=== PATIENT | female | born 1995 | race Caucasian/White ===

== ENCOUNTER → 2020-06-07 08:41 | Outpatient (CLI) | payer OTHER, SELFPAY ==
--- NOTE | ~2020-06-07 | US_ITS ---
EXAMINATION: US thyroid DATE: 06/07/2020 09:17 INDICATION: Nontoxic goiter TECHNIQUE: Multiple ultrasound images of the thyroid were obtained. COMPARISON: None. FINDINGS: The right thyroid lobe measures 4.4 x 1.0 x 1.3 cm. The left thyroid lobe measures 3.4 x 0.8 x 1.2 c m. The thyroid isthmus measures 2 mm in thickness. No discrete nodules identified. There is normal ec hotexture, echogenicity and vascular flow throughout the thyroid gland. IMPRESSION: 1. Normal thyroid ultrasound. Reviewed, dictated and finalized at location B. 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
== END ==
PROVIDERS: PCP Family Medicine; Visit Provider Internal Medicine Endocrinology, Diabetes & Metabolism
DX: E04.9 Nontoxic goiter, unspecified (principal)
CPT/HCPCS: 76536

== ENCOUNTER 2024-03-17 12:55 | Outpatient (CLI) | payer OTHER, SELFPAY ==
--- NOTE | ~2024-03-17 | US_ITS ---
COMPLETE AND LIMITED MATERNAL History: . ANATOMY . Comparison: None Findings: Number of fetuses: 1. BIOMETRY: BPD: 4.7 cm (20 weeks 2 days) HC: 17.9 cm (20 weeks 3 days) AC: 15.4 cm (20 weeks 4 days) FL: 3.1 cm (19 weeks 4 days) CI: 76.3 FL/BPD: 64.9. HC/AC: 1.16. FL/AC: 19.94. Parametric ratios: Today's average US gestational age: 20 weeks 2 days Today's EDC: August 02, 2024 Estimated weight: 333.8 gm. EFW/GP: 61.3%. SCREENING OF ANATOMY: ( Y =seen and unremarkable.) Cerebellum: Y ( 20 mm) Lateral ventricles: Y ( 7.6 mm) Cisterna magna: Y ( 3 mm) nuchal thickness is 4 mm. Stomach: Y Kidneys: Y Bladder: Y Spine: Y Three vessel cord: By Cord insertion: By Four chamber heart: N LVOT: N RVOT: An Lips and nose: Y Upper extremity: Y Lower extremity: Y Cervix: Y ( 29 mm ) Presentation: Vertex. Placental location: Anterior Previa: Highly suggestive.. Amniotic fluid index: Normal subjectively. Heart rate: 135 bpm IMPRESSION: Placenta previa is noted. Follow-up advised. Improper visualization of the details of the heart. Single live fetus of Vertex presentation of age 20 weeks and 2 days. LILLIAM is August 02, 2024 Reviewed, dictated and finalized at location A. 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 Follow-up advised. Improper visualization of the details of the heart. Single live fetus of Vertex presentation of age 20 weeks and 2 days. LILLIAM is Jul
== END 2024-03-17 12:56 | disposition home or self-care (01) ==
PROVIDERS: PCP Obstetrics & Gynecology; Visit Provider Obstetrics & Gynecology
DX: Z36.9 Encounter for antenatal screening, unspecified (principal); Z3A.00 Weeks of gestation of pregnancy not specified
CPT/HCPCS: 76805

== ENCOUNTER 2024-04-09 13:03 | Outpatient (CLI) | payer OTHER, SELFPAY ==
--- NOTE | ~2024-04-09 | US_ITS ---
EXAMINATION: US OB limited DATE: 04/09/2024 13:25 INDICATION: Assess placental location during second trimester . TECHNIQUE: Real-time ultrasound of the pelvis was performed. The interpreting radiologist was not pre sent for the study. COMPARISON: None. FINDINGS: There is a single living fetus in breech presentation. The placenta is anterior with caudal margin 3 .3 cm from the internal cervical os. heart rate is 147 beats per minute (bpm). The amniotic flu id volume is subjectively normal. Four-chamber heart view and cine imaging of the heart demonstrates a couple echogenic intracardiac foci in the left ventricle. Although standard right and left ventricu lar outflow tract views were not obtained, there appears to be normal anatomy of the aorta and pulmon sherry arteries on the cine imaging. IMPRESSION: 1. Single living fetus in breech presentation with heart rate of 147 bpm. 2. Anterior placenta with caudal margin 3.3 cm from the internal cervical os. 3. cardiac anatomy appears normal although standard left and right ventricular outflow tract vi ews were obtained. Incidentally noted are a couple echogenic intracardiac foci in the left ventricle. Reviewed, dictated and finalized at location B. ARCHITECT IMPRESSION: 1. Single living fetus in breech presentation with heart rate of 147 bpm . 2. Anterior placenta with caudal margin 3.3 cm from the internal cervical os. 3. cardiac anatomy appears normal although standard left and right ventri cular outflow tract views were obtained. Incidentally noted are a couple echoge rich intracardiac foci in the left ventricle.
== END 2024-04-09 13:04 | disposition home or self-care (01) ==
LOC: MICIMG 13:03
PROVIDERS: PCP Obstetrics & Gynecology; Visit Provider Obstetrics & Gynecology
DX: O44.02 Complete placenta previa NOS or without hemorrhage, second trimester (principal); Z36.9 Encounter for antenatal screening, unspecified; Z3A.00 Weeks of gestation of pregnancy not specified
CPT/HCPCS: 76815